=== PATIENT | female | born 2000 | race Caucasian/White ===

== ENCOUNTER 2022-06-05 15:00 | Outpatient (RCR) | payer OTHER, SELFPAY ==
--- NOTE | 2022-04-20 17:43 | HP.PTEVAL_ITS ---
Patient's Visit Information KARIME MATA is a 21 year old F referred to Physical Therapy by KEYSHAWN BEAVERS with a diagnosis of L shoulder pain. Date of Evaluation: 04/20/22 Physical Therapist: David López, DPT, OCS, CSCS - Visit Plan Frequency: 2-3x /Week Duration: 4-6 Weeks Plan: 2-3x/week for 4-6 for. 1. strength scap and RC L starting neutral and progressing to overhead and WB, plyo when painfree. ice and TENS as needed. - Subjective Pain i shoulders L is the concerning. Hurt it in January during a game of rugby at [employer] and could not move it. Not sure of what caused the injury but woke up the next day unable to move it.Was sore the night before. Shoulder gentle soreness B is normal for her with rugby. Hard to move for a a number of weeks. Went home for break and got in to see ortho who thought labrum was torn. Denied MRI by inusrance. X ray was clear. Improved while she was home ROM pimentel and can now work out a little bit. Is currently hurting with weightlifting and put jacket on but slight, reaching behind hurts, reaching up to hair. Comfortable at rest but still tight in shoulder. Studying is Ok as are ADLS. Started conditioning for rugby but LLA bothers her. - Pain L shoulder Pain Intensity (Out of 10): 1 Pain Intensity Range: 1, 6 Comment: hair and weightlifting hurt. - Objective Walks and transfers normal today without deficits. Full aROM B shoulders except ext rotation L 5 degrees limited vs R. Sore at end of flex/abd, er. reflexes 2/3 bi and tri. Sensation WNL to gross light touch in UE. strength abd, flexion, and speeds all weak in L at 3+ vs 4 on R. biceps and triceps strong 4+/5 B but some minor pain L biceps.IR and ER 4- B. wrist and thumb 5/5. - HK, - neer, - drop arm, - ext rotation lag test, positive labrum pathology test with horiz abd and ext rotation L. - Balance/Special Test Scores Quick DASH Score: 38.6350 - Goals Goal 1:: Sleep without waking at night due to discomfort Goal Time Frame: 4-6 Weeks Goal 2:: Full aROM without pain L shoulder Goal Time Frame: 2-4 Weeks Goal 3:: patient able to resume upper body workouts for rugby Goal Time Frame: 6-8 Weeks Goal 4:: pt feel daily activities including donning jacket 100% better without pain Goal Time Frame: 4-6 Weeks Goal 5:: quickdash score 13 or better Goal Time Frame: 4-6 Weeks - Rehabilitation Potential Physical Therapy Diagnosis: L shoulder pain with possible labral pathology Rehabilitation Potential: Fair - Anticipated Interventions Patient/Client Instruction: Educate patient on: Condition, Plan of Care For the Purpose of:: To decrease pain, To increase ROM, To improve muscle performance and motor function, To increase tolerance to activi ty/condition/position, To improve ability of physical actions for home/community/work/leisure Therapeutic Exercise to Include: Strength training, Postural training, Flexibilty training, Passive ROM, Active ROM, Scapular Strength/Stabilization For the Purpose of:: To decrease pain, To increase ROM, To improve nutrient delivery to tissue, To improve muscle performance and motor function, To increase tolerance to activity/condition/position Manual Therapy Techniques to Include: Soft tissue mobilization For the Purpose of:: To decrease pain, To increase ROM TENS: Yes Cryotherapy (ice pack, ice massage): Yes For the Purpose of:: To decrease pain, To decrease swelling/inflammation Thank you for the opportunity to evaluate your patient. For Medicare and Medicare HMO plans, please review the plan of care and approve it. It will need to be FAXED BACK to us at [phone] for Medicare purposes. For Medicare only, by signing this I certify the plan of care. Please let me know if there are questions or concerns regarding this plan of care. Physician Signature: Date:
--- NOTE | 2022-07-24 10:04 | HP.PTDCSUM ---
It has been my pleasure to treat KARIME MATA referred by KEYSHAWN BEAVERS, with the diagnosis of L shoulder pain for a total of 13 visit(s). Discharge Date: 06/05/22 Please see the following information for a summary of their discharge status. Subjective: I am good enough to practice. Not as strong as it used to be. Practicing and conditioning with the team. Not doing contact. Overall 90%. No pain but may be tight. Doing band exercises. Sleep is fine. Unless she sleeps on it wrong. Putting coat on is nor poblem. No f/u scheduled with Doctor and not sure she needs MRI anymore. L shoulder Pain Intensity (Out of 10): 0 % Improvement: 90 Objective/Function: Full aROM L shoulder except end range IR at 90 abduction which is -5 from R but not painful. Strengthis symmetrical from L to r except OH rotations slightly weaker L but not painful. Overall doing very well adn wants to try strength and return to contact on her own and willk contact doctor if problem. Goal 1:: Sleep without waking at night due to discomfort Goal Progress: Goal Met Goal 2:: Full aROM without pain L shoulder Goal Progress: Goal Met Goal 3:: patient able to resume upper body workouts for rugby Goal Progress: Goal Met Goal 4:: pt feel daily activities including donning jacket 100% better without pain Goal Progress: Goal Met Goal 5:: quickdash score 13 or better Goal Progress: Progressing Plan: d/c to HEP, pt to contact doctor if pain returns. Discharge Comments: Doing very well and will resume contact practice. If there are questions or concerns regarding this patient's physical therapy, please feel free to call me at [phone]. Thank you for the referral of this patient. Sincerely, David López, DPT, OCS, CSCS Balance/Gait/Functional tests - Balance/Special Test Scores Quick DASH Score: 11.3621
== END 2022-06-05 19:00 | disposition home or self-care (01) ==
LOC: PT 15:00
DX: M25.519 Pain in unspecified shoulder (principal)
CPT/HCPCS: 97110; 97161; 97164

== ENCOUNTER 2022-11-26 16:51 | Emergency (ER) | payer OTHER, SELFPAY ==
[2022-11-26 16:53] VITALS: BP 119/83; PULSE 123; RESP 18; TEMP 36.9; O2SAT 100; BMI 32.8
--- NOTE | 2022-11-26 16:57 | RAD_ITS ---
EXAM: XR LEFT HAND COMPLETE, 3 OR MORE VIEWS CLINICAL INDICATION: INJURY-5TH DIGIT TECHNIQUE: Frontal, lateral and oblique views of the left hand. COMPARISON: No relevant prior studies available. FINDINGS: BONES/JOINTS: Fracture of the base of the fifth proximal phalanx. No visible articular extension. Preservation of the joint space. No sclerotic or destructive changes observed. SOFT TISSUES: Unremarkable. No soft tissue swelling or gas. No radiopaque foreign body. RAD/Hand Min 3 Views IMPRESSION: Fracture of the base of the fifth proximal phalanx. No visible articular extension. Electronically Signed: Sd Palmer MD at 17:16 EDT ,
--- NOTE | 2022-11-26 18:18 | EX.ED.UPPERE ---
HPI <ELIAN Gonzales - Last Filed: 11/26/22 18:22> History of Present Illness Chief Complaint: Upper Extremity Injury Narrative Narrative: Patient is a 22-year-old female with no significant ankle history presents to the emergency department with left fifth digit pain following injuring it at rugby. Patient states that she feels that she fell and bent the wrong way. Patient has bruising, worsening pain and she is here for evaluation. She denies any other injury. PFSH <ELIAN Gonzales - Last Filed: 11/26/22 18:22> PFSH Allergy/AdvReac Type Severity Reaction Status Date / Time amoxicillin Allergy Severe Hives Verified 11/26/22 16:53 Penicillins Allergy Severe Hives Verified 11/26/22 16:53 Social History Smoking Status: Never smoker ROS <ELIAN Gonzales - Last Filed: 11/26/22 18:22> ROS ED ROS Narrative Constitutional: Negative for fever, chills, weight loss, weakness Eyes: Negative for vision loss, vision change, double vision ENT: Negative for any sore throat, ear pain, congestion Cardiovascular: Negative for any chest pain, tightness, palpitations Respiratory: Negative for any cough, sputum production, hemoptysis, dyspnea, dyspnea on exertion, orthopnea Gastrointestinal: Negative for any abdominal pain, nausea, vomiting, diarrhea, constipation, blood in stool, blood in vomit : Negative for any urinary frequency, dysuria, retention, blood in urine Muscle skeletal: Negative for any muscle joint pain, stiffness, myalgias, arthralgias, neck pain, back pain. Positive for left hand pain specific left fifth digit pain Neurological: Negative for any headache, syncope, numbness or tingling, dizziness Skin: Negative for any rashes, lumps, itching, abrasions, lacerations Psychiatric: Negative for any depression, anxiety, stress, suicidal ideation, homicidal ideation Hematologic: Negative for any easy bruising, excessive bruising, easy bleeding Allergies: Negative for any eczema, hives, rash EXAM <ELIAN Gonzales - Last Filed: 11/26/22 18:22> Physical Exam Narrative Exam Narrative: Vital signs reviewed. Extremities: Patient has ecchymosis, edema around the base of the fifth knuckle worse with pain on the ulnar aspect. She is able to flex and extend how this does cause discomfort. There is no abrasion or laceration. No neurological focal deficit. +2 radial pulse. Worsening pain on palpation the distal fifth metacarpal. Neuro: Cranial nerves II through XII intact, no focal neurological deficits. Skin: Clean dry and intact with no rash, purpura, petechiae, vesicles or pustules. Backs/flank: No CVA tenderness, no midline spinal tenderness, no deformity. Psych: Normal mood and affect. No SI, HI or acute psychosis. Const Vital Signs: 11/26/22 16:53 Temperature 98.4 F Temperature Source Temporal Pulse Rate 123 H Respiratory Rate 18 Blood Pressure 119/83 H Blood Pressure Mean 95 Pulse Ox 100 Oxygen Delivery Method Room Air [facility] <ELIAN Gonzales - Last Filed: 11/26/22 18:22> [facility] Radiography Diagnostic Testing: Clinical Impression(s) from Imaging Studies Hand X-Ray 11/26/22 16:57 IMPRESSION: Fracture of the base of the fifth proximal phalanx. No visible articular extension. Electronically Signed: Sd Palmer MD at 17:16 EDT , Treatment and Re-Evaluation Narrative: Patient appears generally well, patient appears nontoxic, vital signs are stable. Patient presents to the emergency department for left fifth digit finger pain. Patient received x-rays that were entered by ER physician, as well as the radiologist, this showed a fracture of the base of the fifth proximal phalanx. No visible articular extension. Patient be placed in a finger splint. She will follow-up with orthopedics. I did offer narcotic analgesia however she states that she will take ibuprofen, Tylenol. All questions were answered. Patient instructed return for any worsening symptoms <Dr. Blane Briseno MD - Last Filed: 11/26/22 18:30> [facility] Narrative Medical decision making narrative: I have personally performed a face to face assessment of the patient and have reviewed the LAST Note. I performed a substantive portion of the visit including all aspects of the following. My maldonado findings include: History is [22-year-old female left small finger injury playing rugby.] Exam is [22-year-old exam normal except left elbow, forearm and wrist nontender normal range of motion. Left hand skin intact tenderness proximal phalanx of the small or fifth digit. Range of motion intact. Swollen.] Medical Decision Making [x-ray showed a fracture of the proximal end of the proximal phalanx of the small finger. Was placed aluminum splint. Discharged home. Motrin and Tylenol. Follow-up with orthopedics.] Other additions or changes: [None] Left hand x-ray, 3 views, interpreted by myself and the radiologist shows a fracture of proximal phalanx of the left small finger. No significant displacement or angulation. Discharge Plan Triage Chief Complaint: Upper Extremity Injury ED Midlevel Provider: Lui Adkins ED Provider: Blane Briseno Dx/Rx/DC Orders Clinical Impression: Finger fracture Instructions: ED Fracture, Finger, Closed Primary Care Provider: Care Physician,No Primary Referrals: Matthew Sanchez MD [Med Staff - Active Staff] - Care Physician,No Primary [Primary Care Provider] - Activity Restrictions/Additional Instructions: Please ice, elevate follow-up with orthopedics. Disposition Disposition: Home, Self Care
== END 2022-11-26 18:29 | disposition home or self-care (01) ==
PROVIDERS: Emergency Provider Emergency Medicine; Visit Provider Emergency Medicine
DX: S62.617A Displaced fracture of proximal phalanx of left little finger, initial encounter for closed fracture (principal); W19.XXXA Unspecified fall, initial encounter; Y92.328 Other athletic field as the place of occurrence of the external cause
CPT/HCPCS: 73130; 99283